=== PATIENT | female | born 1965 | race Caucasian/White ===

== ENCOUNTER → 2019-10-20 10:50 | Outpatient (CLI) | payer OTHER, SELFPAY ==
[2019-01-31 10:29] VITALS: BMI 32.6
--- NOTE | 2019-10-20 10:51 | RAD_ITS ---
STUDY: X-RAY CHEST REASON FOR EXAM: Female, 54 years old. Cough and shortness of breath for 2 weeks. TECHNIQUE: PA and lateral views of the chest. COMPARISON: None. FINDINGS: The lungs are clear and expanded. There is no demonstrated pleural abnormality. Normal size heart. Normal mediastinum and cee. Normal visualized pulmonary arteries. Normal visualized aortic arch and descending thoracic aorta. There are degenerative changes of the visualized thoracic spine. Normal visualized ribs, clavicles, and shoulders. There is no demonstrated abnormality of the visualized soft tissue structures of the upper abdomen. RAD/Chest PA and Lateral IMPRESSION: Normal x-ray examination of the chest. Electronically Signed: Xavi Grant, at 11:29 EST , Service support ,
== END ==
PROVIDERS: Referring Provider Physician Assistant; Visit Provider Physician Assistant
DX: R05 Cough (principal)
CPT/HCPCS: 71046

== ENCOUNTER → 2020-05-15 13:28 | Outpatient (CLI) | payer OTHER, SELFPAY ==
[2019-10-20 11:07] VITALS: BMI 32.6
--- NOTE | 2020-05-15 14:00 | BRBX_PTH ---
PATIENT: NENO BUCKLEY LOC: [facility] U#:[id number] AGE/SX: 60/F ROOM: RE05/15/[address]: Dr. Althea Roland MD : 1965 BED: DIS: SPEC #: [id number] RECD: 05/15/20 14:51 STATUS: ELAINE RENiya #: [id number] SOPHIE: 05/15/20 14:[address]: Althea Roland DEPT: SURGICAL PATHOLOGY RECD BY: Odilon Vargas ENTERED: 05/16/20 11:18 SP TYPE: BREAST BX OTHR DR: Dr. Keven Mendoza MD Tissues: Right breast, NOS Procedures: Surgery Specimen Level IV HEADER OPERATION: Right stereotactic breast biopsy PRE-OP DIAGNOSIS: Right superior lateral breast microcalcifications TISSUE SUBMITTED: Right breast core tissue ISCHEMIC TIME: 1 minute FIXATION TIME: 29.5 hours MICROSCOPIC DIAGNOSIS Right breast, stereotactic needle core biopsy: Florid intraductal hyperplasia. Focal atypical intraductal hyperplasia. Microcalcifications associated with intraductal hyperplasia. Fibrocystic change. AM:mary 05/17/20 COMMENT Case has been reviewed in consultation with Dr. Durán who concurs with the above diagnosis. IDC:WENDY MICROSCOPIC DESCRIPTION Slides are reviewed. GROSS DESCRIPTION Received is one container labeled with the patient's name and not further designated. The specimen consists of multiple elongated fragments of jim-yellow fibroadipose tissue that in aggregate measure 6 x 3 x 0.3 cm. The entire specimen is submitted in three cassettes. / WENDY:mary 05/16/20 TC:5 CPT: 67491
--- NOTE | 2020-05-22 11:18 | OP.PCM_ITS ---
Report of Operation Date of Procedure: 05/15/20 Pre-Operative Diagnosis: abnormal calcifications of right breast mammograms Post-Operative Diagnosis: same Surgery/Procedure Performed:: right breast stereotactic biopsy Description of Surgical Findings:: abnormal right breast calcifications Specimen's removed: right breast tissue Estimated Blood Loss (mL): minimal Description of Procedure: After informed consent was given, the patient was brought into the breast biopsy suite and then placed in the prone position on the stereotactic biopsy table. Appropriate time out protocol was followed. The patient?s right breast was then placed in the opening at the head of the table. A locomotive firer/fireman compression mammogram was then obtained. The suspicious radiological lesion was then identified. Stereo pictures of the lesion were then taken for XYZ coordinates. The Mammotome biopsy stylus was then positioned where it would be entering into the patient?s breast. The skin at this site was then cleansed with a surgical skin preparation. The skin and subcutaneous tissues at this site were then infiltrated with 1% xylocaine. A small skin incision was made with an 11 blade scalpel. The biopsy stylus was then positioned into the patient?s breast at the proper coordinates of depth. Using the Mammotome vacuum-assist device, several core samples of breast tissue were obtained. A specimen mammogram was the obtained and revealed that the suspiciouscalcifications were within the specimen. A hemostatic marker clip was then placed into the biopsy cavity and a locomotive firer/fireman film revealed that it was properly deployed. The patient was then placed in the supine position and pressure was applied to the breast until no active bleeding was noted. Steristrips were applied to reapproximate the skin. A unilateral mammogram in the CC and MLO view were then taken which revealed that the marker clip was in the same area as the previous suspicious lesion. The patient tolerated the procedure well and was discharged from the breast biopsy suite in good condition. - Complications none noted
== END ==
PROVIDERS: PCP Family Medicine; Referring Provider Surgery; Visit Provider Surgery
DX: N60.91 Unspecified benign mammary dysplasia of right breast (principal); N60.11 Diffuse cystic mastopathy of right breast; R92.8 Other abnormal and inconclusive findings on diagnostic imaging of breast
CPT/HCPCS: 19081; 88305; J7050; A4648

== ENCOUNTER 2020-06-26 09:19 | Day surgery (SDC) | payer OTHER, SELFPAY ==
[2019-10-20 11:07] VITALS: BMI 32.6
--- NOTE | 2020-06-25 18:50 | HP.PCM_ITS ---
History and Physical Date of Admission: 06/26/20 [place] is s/p right breast stereotactic biopsy done on 05/15/2020. Pathology reveals - MICROSCOPIC DIAGNOSIS Right breast, stereotactic needle core biopsy: Florid intraductal hyperplasia. Focal atypical intraductal hyperplasia. Microcalcifications associated with intraductal hyperplasia. Fibrocystic change. She notes intermittent bleeding from the biopsy site, but notes no swelling at the site, the bleeding is spotting. I have recommended that she hold pressure on the area for at least 30 minutes. I had also told her that she could follow up in the clinic if she is further concerned. She denies fevers. ? PAST MEDICAL HISTORY Diagnosis Date ? Hypothyroid ? ? Palpitations ? ? PAST SURGICAL HISTORY Procedure Laterality Date ? CHOLECYSTECTOMY ? ? ? HYSTERECTOMY HX ? ? ? partial, due to prolapsed uterus ? KNEE SURGERY HX Right ? ? THYROIDECTOMY ? ? ? FAMILY HISTORY Problem Relation Age of Onset ? Cancer Mother ? ? kidney ? Diabetes Father ? ? Heart Failure Father ? ? other (vascular issues) Father ? ? No Known Problems Sister ? ? Alcohol/Drug Brother ? ? Cancer Maternal Grandmother ? ? No Known Problems Maternal Grandfather ? ? Cancer Paternal Grandmother ? ? No Known Problems Paternal Grandfather ? ? No Known Problems Sister ? ? Asthma Sister ? ? No Known Problems Sister ? ? No Known Problems Brother ? ? No Known Problems Brother ? ? No Known Problems Brother ? ? Social History ? Tobacco Use ? Smoking status: Former Smoker ? Smokeless tobacco: Never Used Substance Use Topics ? Alcohol use: Yes ? ? Frequency: Monthly or less ? ? Drinks per session: 1 or 2 ? ? Binge frequency: Never ? Drug use: Not Currently ? Current Outpatient Medications Medication Sig Dispense Refill ? Estradiol (ESTRACE) 0.5 mg tablet Take 1 tablet by mouth once daily. (Patient not taking: Reported on 05/09/2020 ) 30 tablet 11 ? SYNTHROID 125 mcg tablet Take 1 tablet by mouth once daily. ? ? ? Cholecalciferol, Vitamin D3, 50 mcg/drop (2, 000 unit/drop) drop Take 1 tablet by mouth once daily. ? ALLERGIES Allergen Reactions ? Doxycycline Mental Status Change ? ? REVIEW OF SYSTEMS: General - denies fevers, denies anorexia, denies weight loss Cardiovascular - denies chest pain, denies history of ME Pulmonary - has shortness of breath with chest palpitations since having to wear a mask, denies coughing up blood Gastrointestinal - denies abdominal pain, has some constipation, denies hematemesis, denies blood in stools Neurological - denies seizures, denies chronic numbness/weakness of extremities, has some right leg sciatica, denies chronic headaches Genitourinary - denies burning with urination, denies blood in urine Hematological - denies spontaneous/prolonged bleeding Skin - denies nonhealing skin wounds Musculoskeletal - has some right hip pain Endocrine - denies diabetes, no thyroid problems Psychological ? denies hallucinations Obstetrical - menarche onset at age 15, , first at age 21, breast feeding denies, BCP use initially at age 18 for one year ? PHYSICAL EXAMINATION: General: The patient is 54 year old female, well nourished, well hydrated in no acute distress. The patient is oriented to time, place, and person. VITALS: Ht: 5'5 Wt: 213# Temp 97.8F HR 76 RR 16 Head ? Normocephalic. EOM intact with sclera clear and no icterus noted. Mouth with mucus membranes moist. Neck - supple with no jugular venous distention noted. Trachea is midline. No carotid bruits noted. No thyroid enlargement or thyroid nodules detected. No masses noted. Chest/breast ? no asymmetry of breasts noted, no suspicious skin lesions noted, no nipple discharge and both nipples everted, no breast masses noted Lungs ? clear to auscultation. Normal breath sounds. No rales/rhonchi/wheezing noted. No labored breathing noted, such as retractions. No cough heard. Heart ? normal S1 and S2 auscultated. No rubs/clicks/murmurs noted. Regular rate. Abdomen ? soft and benign. Normal bowel sounds No abdominal bruits noted. Difficult to determine if any masses or organomegaly due to body habitus. Extremities ? no calf tenderness noted. No pitting edema noted. Skin ? normal skin integrity. Lymph ? no cervical adenopathy detected, no supraclavicular adenopathy detected, no axillary adenopathy detected Neurological ? gait normal, no focal deficits noted Psych ? calm and appropriate RADIOLOGIC STUDIES: As Noted IMPRESSION Atypical ductal hyperplasia of right breast ? PLAN I have recommended wide local excision of breast tissue around the site of the previous biopsy as marked by the marker clip - thus a right breast biopsy via wire localization. I have explained the procedure to the patient. I have told the patient the risks of surgery, including but not limited to: infection, bleeding, scar tissue, injury to any blood vessels, injury to any nerves, cosmetic deformity, dysthesias, wound infections, further surgery (especially if margins are not clear if the diagnosis changes), complications of anesthesia, etc. ? the patient understands. She wishes for the procedure to be done at [facility]. ? The patient was offered a surgery/procedure The provider and patient have discussed in detail the risk of exposure to and/or potential harm posed by the COVID-19 virus with having a surgery/procedure at this time versus the risk of? delaying the surgery/procedure. It is not possible to know either the risk of delaying the surgery or procedure or chance of getting an infection with perfect accuracy, but a joint decision was made between the patient and the provider ?to proceed at this time with the scheduled surgery/procedure. ? The patient wishes to proceed. I have answered all questions to the patient?s satisfaction and the patient has no further questions.
[2020-06-26] VITALS (8 sets, daily range): BP systolic 104–120; BP diastolic 60–81; PULSE 67–73; RESP 15–16; TEMP 36.1–36.7; O2SAT 96–100; BMI 36.8
--- NOTE | 2020-06-26 | IMM_PTH ---
PATIENT: NENO BUCKLEY LOC: [facility] [place] U#:[id number] AGE/SX: 55/F ROOM: RE06/26/[address]: Dr. Althea Roland MD : 1965 BED: DIS: 06/26/2020 SPEC #: [id number] RECD: 06/29/20 12:30 STATUS: ELAINE REQ #: [id number] SOPHIE: 06/26/20 00:[address]: Althea Roland DEPT: IMMUNOHISTOCHEMISTRY RECD BY: Lolis Deng ENTERED: 06/29/20 12:32 SP TYPE: IMMUNO OTHR DR: MD Dr. Keven Velez MD Tissues: Right breast, NOS Procedures: CK8 (initial) SMA (add) CALPONIN-1 (add) CK5-6 (add) P40 (add) PHYSICIAN & INSTITUTION [place] [id number] SPECIMEN INFORMATION: Tissue Source: Right breast mass Clinical Info: Atypical ductal hyperplasia of right breast Specimen Number: [id number] #16 CPT code: 90373, 64009 x4 METHODOLOGY: Deparaffinized sections of prefer/formalin-fixed tissue or PAP/DQ stained slides are incubated with monoclonal/polyclonal antibodies/oligonucleotide probes. Localization is made via biotin free immunoperoxidase method. Appropriate controls are performed and reacted as expected. Results on target cell population are indicated in the following table: RESULTS: ANTIBODY / CLONE RESULT Block 16 CK8 (73iniyY72) positive Calponin-1 (YC243D) positive Actin (1A4) positive CK5-6 (D5 & 1684) positive P40 (BC28) positive These tests were developed and their performance characteristics determined by [facility]. They may not have been cleared or approved by the U.S. Food and Drug Administration. The FDA has determined that such clearance or approval is not necessary. The above immunohistochemical/dualISH markers are ordered and reviewed by the Pathologist. INTERPRETATION: Right breast mass, biopsy: No evidence of invasive carcinoma. AM:mary 07/02/20 Case has been reviewed in consultation with Dr. Durán who concurs with the above diagnosis. IDC:WENDY
--- NOTE | 2020-06-26 10:00 | BI_ITS ---
SURGICAL BREAST SPECIMEN RADIOGRAPH CLINICAL: Document presence of tissue clip marker in biopsy specimen. FINDINGS: Specimen shows presence of tissue clip marker. Electronically Signed: Xavi Grant, at 14:27 EDT , Service support , BI/Breast Biopsy Specimen
[2020-06-26] MEDS: Lactated Ringers 1,000 ML 75 ML IV ×2 (10:39→14:19)
--- NOTE | 2020-06-26 12:52 | PCM.DC.BS ---
Discharge Diet: No Restrictions Discharge Activity: Return to Normal Activity, May not drive while taking narcotic pain medications. Call your doctor if your incision/area has: Continuous Slow Oozing, Foul Smelling Discharge Call your doctor if you observe: Fever of 101 or Higher Additional Instructions: Recommended pain control regimen - May take 600 mg ibuprofen (Motrin) and then in 3-4 hours, may take 650 mg acetaminophen (Tylenol), then in 3-4 hours may take 600 mg ibuprofen, then in 3-4 hours may take 650 mg acetaminophen and so on for 2-3 days May take narcotic pain medication for pain that is not controlled by above and at night for comfort through the night Leave dressings in place May get dressings wet in shower - do not scrub in the area and pat dry Do not soak - no tub baths/swimming For breast surgery - Wear supportive bra during the day Swelling and bruising will occur in the area, ice packs to the area may provide comfort, apply as tolerated Avoid excessive bouncing/jumping for at least two weeks Allergies/Adverse Reactions: Allergies No Known Allergies Allergy (Unverified 06/26/20 09:45) Medications to take at Discharge cholecalciferol (vitamin D3) 2,000 unit PO DAILY 01/31/19 levothyroxine 125 mcg tablet 125 mcg PO DAILY 01/31/19 Acetaminophen/Codeine #3 [Tylenol#3] 1 tablet PO Q8H PRN PRN 4 Days #10 tablet 06/26/20 The following prescriptions were given: Acetaminophen/Codeine #3 [Tylenol#3] 1 tablet PO Q8H PRN PRN 4 Days #10 tablet PRN Reason: Pain Score 4-10/10 Transmission Status: Received by [id number] Primary Care Physician: Keven Mendoza MD [Primary Care Provider] - Please Follow Up With: Althea Roland MD - call When: in 1-2 weeks, please call for date and time, thank you
--- NOTE | 2020-06-26 12:54 | OP.PCM_ITS ---
Report of Operation Date of Procedure: 06/26/20 Pre-Operative Diagnosis: Atypical ductal hyperplasia of right breast Post-Operative Diagnosis: same Surgery/Procedure Performed:: right breast biopsy via wire localization Description of Surgical Findings:: right breast tissue with fibrocystic breast changes - dense fibrosis, blue cysts, multiple cloudy fluid filled cysts sleep scientist: Dylan Ugalde Type of Anesthesia:: Local MAC Anesthesiologist: Azael Rocha Specimen's removed: right breast tissue Estimated Blood Loss (mL): < 5 ml Fluids Replaced: 1200 ml RL Description of Procedure: After informed consent was given, the patient was brought into the Breast Stereotactic Radiology suite. Appropriate time out protocol was followed. The patient was then placed in the prone position on the [place] stereotactic table. The patient?s right/left breast was placed in the opening at the head of the table. A flight/transport nurse compression mammogram was then obtained in the CC view. The marker clip that was previously placed was identified. Stereo pictures of the lesion were then taken for XYZ coordinates. The Kopans needle was then positioned where it would be entering into the patient?s breast. The skin at this site was then cleansed with a surgical skin preparation. The skin and subcutaneous tissues at this site were then infiltrated with 1% xylocaine. The Kopans needle was then positioned into the patient?s breast at the proper coordinates of depth. A flight/transport nurse film was obtained which revealed the wire in proper position. The patient was then placed in the supine position and the wire was taped into place. A unilateral mammogram in the CC and MLO view were then taken for use in the OR. The patient tolerated this portion of the procedure well and was brought to the AC awaiting surgery in the OR. The patient was then brought to the Operating Room. Appropriate time out protocol was followed. The patient was then placed on the operating table in the supine position. A wire had already been placed in the stereotactic biopsy room in the radiology department as described above. The right breast with the wire in placed was then prepped with a sterile surgical skin preparation and sterile surgical drapes were placed. The skin and subcutaneous tissues at the site of the breast lesion was then infiltrated with 1% xylocaine with epinephrine. A transverse curvilinear skin incision was then made at the wire entrance site at the upper outer quadrant of the right breast with a 15 blade scalpel and carried down through to the subcutaneous tissues. Hemostasis was controlled with electrocautery. The wire was then palpated out within the breast tissue. It was brought into the wound from outside. The breast tissue surrounding the wire was then carefully palpated out and from the surrounding tissues using electrocautery. The breast tissue, once from the breast, was then forwarded to the radiology department, where a specimen mammogram revealed that the marker clip was within the specimen. I personally reviewed this and made the determination that the tissue obtained was appropriately adequate. The patient was noted to have dense breast tissue with blue cysts and other breast cysts. The wound cavity was carefully examined. No further suspicious tissue was palpated or visualized. Hemostasis was carefully controlled with electrocautery. The subdermal tissues were then approximated with vicryl suture. The incision was then reapproximated close using running monocryl suture. Cavilon and steristrips were then placed to reinforce the skin closure. Sponge, needle, and instrument count were verified and correct at the time of skin closure. A sterile dressing was then applied. The patient was then brought to the Recovery Room in stable condition. - Complications none noted - Admit VTE Documentation VTE Present on Admission: Yes VTE Mechan Device Prophylaxis: SCD's
[2020-06-26] MEDS: Cefazolin 2 GM in 0.9% Normal Saline 100 ML IV (12:58)
--- NOTE | 2020-06-26 13:00 | BRBX_PTH ---
PATIENT: NENO BUCKLEY LOC: [facility] [place] U#:[id number] AGE/SX: 55/F ROOM: RE06/26/[address]: Dr. Althea Roland MD : 1965 BED: DIS: 06/26/2020 SPEC #: [id number] RECD: 06/26/20 13:54 STATUS: ELAINE REQ #: [id number] SOPHIE: 06/26/20 13:[address]: Althea Roland DEPT: SURGICAL PATHOLOGY RECD BY: Ritesh Maradiaga ENTERED: 06/27/20 09:32 SP TYPE: BREAST BX OTHR DR: MD Dr. Keven Velez MD Tissues: Right breast, NOS Procedures: Surgery Specimen Level V HEADER OPERATION: Breast biopsy via wire loc PRE-OP DIAGNOSIS: Atypical ductal hyperplasia of right breast TISSUE SUBMITTED: Right breast mass, two long sutures toward nipple, two short sutures - posterior, wire - superior, long single suture - lateral MICROSCOPIC DIAGNOSIS Right breast, lumpectomy: Multifocal atypical intraductal hyperplasia. Florid intraductal hyperplasia without atypia. Fibrocystic change. Microcalcifications. See comment. AM:mary 07/02/20 COMMENT Immunohistochemistry ([id number]) supports the above diagnosis. Reference is made to the patient's previous right breast stereotactic needle core biopsy ([id number]) in which focal atypical intraductal hyperplasia was identified. Case has been reviewed in consultation with Dr. Durán who concurs with the above diagnosis. IDC:SJ MICROSCOPIC DESCRIPTION Slides are reviewed. GROSS DESCRIPTION Received in fixative is one container labeled with the patient's name and designated right breast mass. The specimen consists of a piece of fibroadipose tissue with needle localization measuring 7 x 5 x 4.5 cm. The specimen is oriented as follows: two long sutures toward nipple, two short sutures - posterior, wire - superior, long single suture - lateral. The specimen is inked as follows: anterior - yellow, posterior - black, superior - blue, inferior - green, medial - red and lateral - orange. Serial sections reveal jim-yellow adipose cut surfaces mixed with fibrous area. The fibrous area is very close to multiple margins. No obvious mass lesion is identified. Traveling Freight Agent sections are submitted in 16 cassettes as follows: 1?&?2 - perpendicular margins, 3-16 - corporate sales representative sections including closest margin in fibrous area. Sections will be submitted after additional fixation. / WENDY:mary 06/27/20 TC:? CPT: 15399
== END 2020-06-26 15:34 | disposition home or self-care (01) ==
LOC: SDC 09:20 → AC 09:22
PROVIDERS: Anesthesiology; PCP Family Medicine; Referring Provider Surgery; Visit Provider Surgery
PROC: (CPT 19125; principal; 2020-06-26 12:45)
DX: N60.91 Unspecified benign mammary dysplasia of right breast (principal); N60.11 Diffuse cystic mastopathy of right breast; E03.9 Hypothyroidism, unspecified; K21.9 Gastro-esophageal reflux disease without esophagitis; Z87.891 Personal history of nicotine dependence; Z79.899 Other long term (current) drug therapy; Z11.59 Encounter for screening for other viral diseases
CPT/HCPCS: 00400; 19125; 19281; 76098; 87635; 88305; 88307; 88341; 88342; 94799; J7050; J7120; J2405; U0003